=== PATIENT | female | born 1955 | race Caucasian/White ===

== ENCOUNTER → 2016-09-15 | Outpatient (CLI) | payer BC ==
--- NOTE | 2016-09-15 12:45 | MAMMOGRAPHY REPORT ---
UNILATERAL RIGHT DIGITAL DIAGNOSTIC MAMMOGRAM TOMOSYNTHESIS AND TARGETED RIGHT ULTRASOUND: 09/15/2016 CLINICAL HISTORY: The patient was called back from an outside institution for a right lateral asymme try seen on a screening mammogram. She underwent a diagnostic workup, and ultimately a stereotactic biopsy was recommended at the outside institution. The patient presents for biopsy today. TECHNIQUE: Breast tomosynthesis in addition to standard 2D mammography was performed. Right CC and MLO 2-D and tomosynthesis images were obtained. COMPARISON: Comparison is made to exam dated: 08/23/2016 mammogram - [facility]. BREAST COMPOSITION: There are scattered areas of fibroglandular density in the right breast. FINDINGS: The previously described asymmetry seen within the right lateral breast is less prominent and no longer evident on the current exam and has the appearance of normal fibroglandular tissue on the tomosynthesis images. Additionally, this region appears similar to multiple prior exams includi ng the 2013 exam. No suspicious mass or architectural distortion is seen in this region on the curr ent exam. The remainder of the right breast is stable compared to prior exams, without suspicious m asses, calcifications, or areas of architectural distortion noted. Scattered benign-appearing calci fications are stable. Targeted ultrasound was performed of the right lateral breast in the region of the previously seen a symmetry. Sonographically normal tissue is seen, without evidence of a mass or other suspicious son ographic abnormality. IMPRESSION: ACR-BI-RADS CATEGORY 3: PROBABLY BENIGN, TARGETED ULTRASOUND ACR-BI-RADS CATEGORY 3: [place] OBABLY BENIGN The previously described right lateral breast asymmetry is less prominent and no longer evident on t he current exam, with no corresponding sonographic abnormality evident. The asymmetry is probably b enign and likely represents normal fibroglandular tissue. As the asymmetry has the appearance of no rmal tissue, biopsy was not performed. Recommend follow-up diagnostic tomosynthesis mammograms of t he right breast in 6 months to confirm stability. The patient has been verbally notified of the results. Approximately 10% of breast cancers are not detected with mammography. A negative mammographic repor t should not delay biopsy if a clinically suggestive mass is present. Goldie Luis M.D. /:09/15/2016 08:34:58 Lump Machine Operator: Lydia ATWOOD)(Danielle), [facility] letter sent: Follow Up Recommended 3 BI-RADS Code: ACR-BI-RADS Category 3: Probably Benign Ultrasound BI-RADS: ACR-BI-RADS Category 3: P robably Benign
== END | disposition home or self-care (01) ==
LOC: C.MAMM 08:02
PROVIDERS: ATTEND Family Medicine
DX: N63 Unspecified lump in breast (principal); N64.89 Other specified disorders of breast

== ENCOUNTER → 2017-03-16 | Outpatient (CLI) | payer BC ==
--- NOTE | 2017-03-16 13:43 | MAMMOGRAPHY REPORT ---
UNILATERAL RIGHT DIGITAL DIAGNOSTIC MAMMOGRAM TOMOSYNTHESIS WITH CAD: 03/16/2017 CLINICAL HISTORY: 62-year-old woman presents 6 months after a canceled stereotactic biopsy of an asym metry in the lateral right breast. The asymmetry was no longer present the day of the stereotactic b iopsy and was felt to represent normal overlapping tissue. TECHNIQUE: Right breast tomosynthesis in addition to standard 2D mammography was performed. Current carroll trejo was also evaluated with a Computer Aided Detection (CAD) system. COMPARISON: Comparison is made to exams dated: 09/15/2016 mammogram, 09/15/2016 ultrasound - [facility], and 08/23/2016 mammogram - [facility]. BREAST COMPOSITION: There are scattered areas of fibroglandular density in the right breast. FINDINGS: The previously observed asymmetry with possible assisted distortion in the lateral middle o ne third of the right breast, best seen on the CC view is no longer identified, confirming normal ove rlapping fibroglandular tissue. There is no evidence of a suspicious mass, focal area of architectur al distortion or suspicious microcalcifications. There are benign rodlike secretory calcifications i n the lateral right breast. No mammographic evidence of malignancy, recommend return to annual [facility] tiffany mammography schedule. IMPRESSION: ACR BI-RADS CATEGORY 2: BENIGN The right lateral asymmetry with possible associated distortion is no longer seen, confirming benigni ty. This most likely represented normal overlapping tissue. There is no mammographic evidence of ma lignancy in the right breast. Return to annual mammogram screening schedule is recommended (due Decem aaliyah 2017January 2018). The patient has been verbally notified of the results. Approximately 10% of breast cancers are not detected with mammography. A negative mammographic report should not delay biopsy if a clinically suggestive mass is present. Kallie Gonzalez M.D. ay/:03/16/2017 08:54:51 Stoker Installer: Mena KIRK(Mamadou)(Danielle), [facility] letter sent: Normal 1/2 BI-RADS Code: ACR BI-RADS Category 2: Benign
== END | disposition home or self-care (01) ==
LOC: C.MAMM 08:32
PROVIDERS: ATTEND Physician Assistant
DX: R92.8 Other abnormal and inconclusive findings on diagnostic imaging of breast (principal); N64.89 Other specified disorders of breast

== ENCOUNTER → 2017-08-11 | Outpatient (CLI) | payer BC ==
--- NOTE | 2017-08-12 12:50 | MAMMOGRAPHY REPORT ---
BILATERAL DIGITAL SCREENING MAMMOGRAM TOMOSYNTHESIS WITH CAD: 08/11/2017 CLINICAL HISTORY: Routine screening. Patient has no complaints. TECHNIQUE: Breast tomosynthesis in addition to standard 2D mammography was performed. Current study was also evaluated with a Computer Aided Detection (CAD) system. COMPARISON: Comparison is made to exams dated: 03/16/2017 mammogram, 09/15/2016 mammogram, 09/15/2016 ultr asound - [facility], and 08/23/2016 mammogram - [facility]. BREAST COMPOSITION: There are scattered areas of fibroglandular density in both breasts. FINDINGS: No suspicious masses, calcifications, or areas of architectural distortion are noted in ei ther breast. There has been no significant interval change compared to prior exams. Scattered bilater al benign-appearing calcifications are not significantly changed. IMPRESSION: ACR BI-RADS CATEGORY 2: BENIGN There is no mammographic evidence of malignancy. A 1 year screening mammogram is recommended. The pa tient will receive written notification of the results. Approximately 10% of breast cancers are not detected with mammography. A negative mammographic report should not delay biopsy if a clinically suggestive mass is present. Goldie Luis M.D. /:08/11/2017 15:00:53 Form Grader: Mena [facility] letter sent: Normal 1/2 BI-RADS Code: ACR BI-RADS Category 2: Benign
== END | disposition home or self-care (01) ==
LOC: C.MAMM 08:38
PROVIDERS: ATTEND Physician Assistant
DX: Z12.31 Encounter for screening mammogram for malignant neoplasm of breast (principal)